=== PATIENT | male | born 1995 | race Caucasian/White ===

== ENCOUNTER 2023-01-31 12:10 | Emergency (ER) | payer OTHER ==
[~2023-01-31] VITALS: Ht 180.3 cm; Wt 102.7 kg
[2023-01-31 12:11] VITALS: BP 133/84; TEMP 97.9; O2SAT 100
[2023-01-31] MEDS ORDERED: LOTR1CRE3 TOP (12:16)
[2023-01-31] MEDS ORDERED: FLUC200T4 PO ×2 (15:51→16:12)
[2023-01-31 16:32] LABS: ALBUMIN 4.7 G/DL (3.2-5.2); ALKALINE PHOSPHATASE 51 U/L (46-116); ALT/SGPT 18 U/L (7.0-40); AST/SGOT 13 U/L (<34); BILIRUBIN,DIRECT 0.3 MG/DL (<0.4); BLOOD UREA NITROGEN 14 MG/DL (9-23); CALCIUM LEVEL 9.4 MG/DL (8.5-10.1); CARBON DIOXIDE LEVEL 25 MMOL/L (20-31); CHLORIDE LEVEL 104 MMOL/L (98-107); CREATININE FOR GFR 0.89 MG/DL (0.70-1.30); GLOMERULAR FILTRATION RATE > 60.0 (>60); GLUCOSE, FASTING 77 MG/DL (60-100); POTASSIUM SERUM 3.9 MMOL/L (3.5-5.1); SODIUM LEVEL 138 MMOL/L (136-145); TOTAL PROTEIN 7.4 G/DL (5.7-8.2)
== END 2023-01-31 16:39 | disposition home or self-care (01) ==
LOC: M ED 12:10
DX: B35.6 Tinea cruris (principal); F10.10 Alcohol abuse, uncomplicated; F17.200 Nicotine dependence, unspecified, uncomplicated; Z79.899 Other long term (current) drug therapy